=== PATIENT | female | born 1950 | race Caucasian/White ===

== ENCOUNTER 2018-11-13 09:01 | Day surgery (SDC) | payer MEDICARE ==
[~2018-11-13] VITALS: Ht 167.6 cm; Wt 0.5 kg
[~2018-11-13 09:01] MED LIST: ALEV220T22 PO; ASPI81CH33 PO; ATOR40TA75 PO; CITRTAB13 PO; GLIM4TAB PO; INSUDET SC; LISI-1046 PO; LOPR1TAB7 PO; METF500T13 PO; METO1TAB33 PO; MULTCAP PO
[2018-11-13] MEDS ORDERED: NS 1,000 ML IV ONE (09:45)
[2018-11-13] MEDS ORDERED: PROPOFOL 200 MG/20 ML VIAL As Ordered ONE ×3 (10:17→11:07)
[2018-11-13] MEDS ORDERED: GLUCAGON FOR INJ 1 MG VIAL (J1610) As Ordered ONE (10:59)
[2018-11-13] MEDS ORDERED: ePHEDrine SULFATE 25 MG/5 ML(5MG/ML) SYRINGE As Ordered ONE (11:14)
--- NOTE | 2018-11-13 11:37 | ROOR ---
Patient Name: Karin Odell Procedure Date: 11/13/2018 10:13 AM Date of : 1950 Age: 68 Room: [facility] Gender: Female Note Status: Finalized Procedure: Colonoscopy Indications: High risk colon cancer surveillance: Personal history of colonic polyps Providers: Ernesto WATTS MD Referring MD: REMINGTON ROBERTO DO Requesting Provider: Medicines: Monitored Anesthesia Care Complications: No immediate complications. Procedure: Pre-Anesthesia Assessment: - The heart rate, respiratory rate, oxygen saturations, blood pressure, adequacy of pulmonary ventilation, and response to care were monitored throughout the procedure. The Colonoscope was introduced through the anus and advanced to the terminal ileum, with identification of the appendiceal orifice and IC valve. The colonoscopy was performed without difficulty. The patient tolerated the procedure well. The quality of the bowel preparation was good. Findings: The perianal and digital rectal examinations were normal. Three flat polyps were found in the hepatic flexure. The polyps were 5 to 10 mm in size. These polyps were removed with a piecemeal technique using a hot snare. Resection and retrieval were complete. Two flat polyps were found in the splenic flexure. The polyps were 4 to 8 mm in size. These polyps were removed with a piecemeal technique using a hot snare. Resection and retrieval were complete. Four flat polyps were found in the descending colon. The polyps were 4 to 8 mm in size. These polyps were removed with a piecemeal technique using a hot snare. Resection and retrieval were complete. Six flat polyps were found in the sigmoid colon. The polyps were 4 to 8 mm in size. These polyps were removed with a piecemeal technique using a hot snare. Resection and retrieval were complete. Four sessile polyps were found in the rectum and recto-sigmoid colon. The polyps were 4 to 6 mm in size. These polyps were removed with a hot snare. Resection and retrieval were complete. The terminal ileum contained one semi-sessile polyp. The polyp was 4 mm in diameter. The polyp was removed with a cold snare. Resection and retrieval were complete. Internal hemorrhoids were found during retroflexion. The hemorrhoids were medium-sized. A tattoo was seen in the transverse colon. A post-polypectomy scar was found at the tattoo site. There was no evidence of residual polyp tissue. Impression: - Three 5 to 10 mm polyps at the hepatic flexure, removed piecemeal using a hot snare. Resected and retrieved. - Two 4 to 8 mm polyps at the splenic flexure, removed piecemeal using a hot snare. Resected and retrieved. - Four 4 to 8 mm polyps in the descending colon, removed piecemeal using a hot snare. Resected and retrieved. - Six 4 to 8 mm polyps in the sigmoid colon, removed piecemeal using a hot snare. Resected and retrieved. - Four 4 to 6 mm polyps in the rectum and at the recto-sigmoid colon, removed with a hot snare. Resected and retrieved. - One polyp in the terminal ileum, removed with a cold snare. Resected and retrieved. - Internal hemorrhoids. - A tattoo was seen in the transverse colon. A post-polypectomy scar was found at the tattoo site. There was no evidence of residual polyp tissue. Recommendation: - Repeat colonoscopy in 1 year for surveillance. - Depending on polyp pathology, genetic testing will be offered. Ernesto Watts MD Ernesto WATTS MD 11/13/2018 11:37:07 AM Electronically signed by Ernesto WATTS MD Number of Addenda: 0 Note Initiated On: 11/13/2018 10:13 AM Estimated Blood Loss: Estimated blood loss: none.
[2018-11-13 11:50] VITALS: BP 179/78
== END 2018-11-13 12:04 | disposition home or self-care (01) ==
LOC: M OPP 09:01
PROVIDERS: ATTEND Internal Medicine Gastroenterology
DX: Z86.010 Personal history of colon polyps (principal); Z80.0 Family history of malignant neoplasm of digestive organs; D12.3 Benign neoplasm of transverse colon; D12.4 Benign neoplasm of descending colon; D12.5 Benign neoplasm of sigmoid colon; K62.1 Rectal polyp; D13.39 Benign neoplasm of other parts of small intestine; K64.8 Other hemorrhoids; Z79.82 Long term (current) use of aspirin; Z79.899 Other long term (current) drug therapy; Z79.84 Long term (current) use of oral hypoglycemic drugs; F17.210 Nicotine dependence, cigarettes, uncomplicated
CPT/HCPCS: 45385; 88305; J1610

== ENCOUNTER → 2020-02-09 | Outpatient (CLI) | payer MEDICARE ==
[~2020-02-09] MED LIST changes: +ACET-908 PO; -CITRTAB13 PO; +CITRTAB16 PO; -GLIM4TAB PO; +GLIM4TAB5 PO; -LISI-1046 PO; +LISI2.5T2 PO
== END ==
LOC: M LABSMTC 10:29
PROVIDERS: ATTEND Anesthesiology
DX: Z01.812 Encounter for preprocedural laboratory examination (principal); Z20.828 Contact with and (suspected) exposure to other viral communicable diseases
CPT/HCPCS: C9803; U0003

== ENCOUNTER 2020-02-14 07:46 | Day surgery (SDC) | payer MEDICARE ==
[~2020-02-14] VITALS: Ht 167.6 cm; Wt 76.7 kg
[~2020-02-14 07:46] MED LIST changes: +NS 1,000 ML IV ONE
[2020-02-14] MEDS ORDERED: propofoL 200 MG/20 ML VIAL As Ordered ONE ×2 (08:38→08:55)
[2020-02-14] MEDS ORDERED: LIDOCAINE 2% 100MG/5ML SDV (FOR ANES.) As Ordered ONE (08:38)
--- NOTE | 2020-02-14 09:10 | ROOR ---
Patient Name: Karin Odell Procedure Date: 02/14/2020 8:36 AM Date of : 1950 Age: 69 Room: [facility] Gender: Female Note Status: Finalized Procedure: Colonoscopy Indications: High risk colon cancer surveillance: Personal history of colonic polyps, Surveillance: History of numerous (> 10) adenomas on last colonoscopy (< 3 yrs) Providers: Ernesto WATTS MD Referring MD: REMINGTON ROBERTO DO Requesting Provider: Medicines: Monitored Anesthesia Care Complications: No immediate complications. Procedure: Pre-Anesthesia Assessment: - The heart rate, respiratory rate, oxygen saturations, blood pressure, adequacy of pulmonary ventilation, and response to care were monitored throughout the procedure. The Colonoscope was introduced through the anus and advanced to the terminal ileum, with identification of the appendiceal orifice and IC valve. The colonoscopy was performed without difficulty. The patient tolerated the procedure well. The quality of the bowel preparation was good. Findings: The perianal and digital rectal examinations were normal. Eight flat polyps were found in the sigmoid colon, splenic flexure and ascending colon. The polyps were 4 to 8 mm in size. These polyps were removed with a cold snare. Resection and retrieval were complete. Small Internal Hemorrhoids. The exam was otherwise without abnormality on direct and retroflexion views. Impression: - Eight 4 to 8 mm polyps in the sigmoid colon, at the splenic flexure and in the ascending colon, removed with a cold snare. Resected and retrieved. - Small Internal Hemorrhoids. - The examination was otherwise normal on direct and retroflexion views. Recommendation: - Repeat colonoscopy in 3 years for surveillance. Ernesto Watts MD Ernesto WATTS MD 02/14/2020 9:09:24 AM Electronically signed by Ernesto WATTS MD Number of Addenda: 0 Note Initiated On: 02/14/2020 8:36 AM Estimated Blood Loss: Estimated blood loss: none.
[2020-02-14 09:30] VITALS: BP 172/74
== END 2020-02-14 09:37 | disposition home or self-care (01) ==
LOC: M OPP 07:46
PROVIDERS: ATTEND Internal Medicine Gastroenterology
DX: Z86.010 Personal history of colon polyps (principal); K63.5 Polyp of colon; K64.8 Other hemorrhoids; Z80.0 Family history of malignant neoplasm of digestive organs; Z09 Encounter for follow-up examination after completed treatment for conditions other than malignant neoplasm; E11.9 Type 2 diabetes mellitus without complications; F17.210 Nicotine dependence, cigarettes, uncomplicated; Z79.4 Long term (current) use of insulin; Z79.82 Long term (current) use of aspirin; Z79.899 Other long term (current) drug therapy